=== PATIENT | female | born 1955 | race Caucasian/White ===

== ENCOUNTER → 2019-02-11 | Day surgery (SDC) | payer MEDICAID ==
[~2019-02-11] VITALS: Ht 157.5 cm; Wt 81.6 kg
[~2019-02-11] MED LIST: ACETAMINOPHEN 325MG TABLET PO PRN; AMLO10TA80 MT; ATOR-2 MT; BETH10TA MT; CLON1PAT12 TP; FENTANYL CITRATE/PF 50MCG/ML 2ML VIAL ONE; FURO40TA5 MT; HEPARIN SODIUM 1,000 UNIT/1ML VIAL IV ONE; HYDR-4135 MT; INSU100I28 SQ; IODIXANOL 320MG/ML 100 ML BOTTLE IV ONE; LIDOCAINE HCL 1% 20ML VIAL (Pyxis) INJ ONE; LOSA100T14 MT; MIDAZOLAM HCL 2 MG/2 ML VIAL ONE; MORPHINE SULFATE 2 MG/ML CPJ (NOT FOR IM USE) IV PRN; ONDANSETRON HCL 4MG/2ML INJ IV PRN; POTA20TA82 MT; WARF-67 MT
[2019-02-11 11:35] LABS: HEMATOCRIT 29.4 % (36.0-48.0); MEAN CORPUSCULAR HEMOGLOBIN 28.9 pg (28.0-32.0); MEAN CORPUSCULAR VOLUME 85.2 fL (81.0-99.0); PLATELET 327 x1000/uL (130-400); RED BLOOD CELL COUNT 3.45 mill/uL (4.2-5.4); RED CELL DISTRIBUTION WIDTH 15.1 % (11.6-14.6)
[2019-02-11 11:42] LABS: INR 2.7; PARTIAL THROMBOPLASTIN TIME 49.6 sec (23.4-31.0); PROTHROMBIN TIME 26.8 sec (9.6-11.0)
[2019-02-11 14:00] LABS: BG BASE EXCESS -2.8 mmol/L (-2.0-2.0); BG CARBOXYHEMOGLOBIN 0.3 % (0.5-1.5); BG DEOXYHEMOGLOBIN 1.8 % (0.0-5.0); BG HCO3 ACT 23.7 mmol/L (22.0-26.0); BG METHEMOGLOBIN 0.2 % (0.0-1.5); BG OXYGEN SATURATION 98.2 % (92.0-98.5); BG OXYHEMOGLOBIN 97.7 % (94.0-97.0); BG PCO2 49.4 mmHg (35.0-45.0); BG PH 7.299 (7.350-7.450); BG PO2 128.2 mmHg (75.0-100.0); BG SAMPLE SITE A-LINE; BG TOTAL HEMOGLOBIN 9.9 g/dL (12.0-18.0); BG VENT MODE NASAL CANNULA
[2019-02-11 14:02] LABS: BG BASE EXCESS -5.3 mmol/L (-2.0-2.0); BG CARBOXYHEMOGLOBIN 0.5 % (0.5-1.5); BG DEOXYHEMOGLOBIN 22.6 % (0.0-5.0); BG HCO3 ACT 21.2 mmol/L (22.0-26.0); BG METHEMOGLOBIN 0.4 % (0.0-1.5); BG OXYGEN SATURATION 77.2 % (92.0-98.5); BG OXYHEMOGLOBIN 76.5 % (94.0-97.0); BG PCO2 44.8 mmHg (35.0-45.0); BG PH 7.293 (7.350-7.450); BG PO2 43.1 mmHg (75.0-100.0); BG SAMPLE SITE OTHER; BG TOTAL HEMOGLOBIN 13.3 g/dL (12.0-18.0); BG VENT MODE NASAL CANNULA
[2019-02-11 14:06] LABS: BG BASE EXCESS -4.8 mmol/L (-2.0-2.0); BG DEOXYHEMOGLOBIN 22.4 % (0.0-5.0); BG HCO3 ACT 21.3 mmol/L (22.0-26.0); BG METHEMOGLOBIN 0.3 % (0.0-1.5); BG OXYGEN SATURATION 77.5 % (92.0-98.5); BG OXYHEMOGLOBIN 77.3 % (94.0-97.0); BG PCO2 43.8 mmHg (35.0-45.0); BG PH 7.305 (7.350-7.450); BG PO2 42.9 mmHg (75.0-100.0); BG SAMPLE SITE PA LINE; BG TOTAL HEMOGLOBIN 9.9 g/dL (12.0-18.0); BG VENT MODE NASAL CANNULA
== END | disposition home or self-care (01) ==
LOC: CCL 10:12
PROVIDERS: ATTEND Internal Medicine Cardiovascular Disease
DX: I35.1 Nonrheumatic aortic (valve) insufficiency (principal); I50.9 Heart failure, unspecified; E78.5 Hyperlipidemia, unspecified; Q21.0 Ventricular septal defect
CPT/HCPCS: 36415; 36600; 80048; 82375; 82805; 85027; 85610; 85730; 93005; 93460; 99152; 99153; C1760; C1769; C1887; C1893; J1644; J2250; J3010; J3490; Q9967; G0500